=== PATIENT | male | born 1970 | race Caucasian/White ===

== ENCOUNTER 2017-08-07 11:25 | Emergency (ER) | payer OTHER ==
[~2017-08-07 11:25] MED LIST: ALUM5LIQ PO; PERC5TAB12 PO
[2017-08-07] MEDS ORDERED: IOHEXOL 350 MG/ML 10 ML VIAL (for RAD DIAG) IVCONTRAST ONE (11:26)
[2017-08-07 12:14] VITALS: BP 150/104; PULSE 107; RESP 22; TEMP 97.5; O2SAT 97
[2017-08-07] MEDS ORDERED: MORPHINE SULFATE 2 MG/ML INJ IM ONE (13:00)
[2017-08-07] MEDS ORDERED: SODIUM CHLOR 0.9% 1000 ML INJ 1,000 ML IV ONE (13:00)
[2017-08-07] MEDS ORDERED: SODIUM CHLORIDE 0.9% FLUSH 10 ML FLUSH IV FLUSH PRN (13:00)
[2017-08-07] MEDS ORDERED: ONDANSETRON HCL 4 MG/2 ML VIAL IVP ONE (13:00)
[2017-08-07] MEDS ORDERED: METHOCARBAMOL 1000 MG/10 ML VIAL IM ONE (13:00)
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
[2017-08-07 13:15] LABS: AUTOMATED NEUTROPHIL # 6.1 TH/MM3 (1.8-7.7); BASOPHIL # 0.1 TH/MM3 (0-0.2); BASOPHIL % 1.1 % (0.0-2.0); EOSINOPHIL # 0.3 TH/MM3 (0-0.4); EOSINOPHIL % 2.6 % (0.0-4.0); HEMATOCRIT 47.2 % (39.0-51.0); HEMOGLOBIN 16.3 GM/DL (13.0-17.0); LYMPH % 21.5 % (9.0-44.0); LYMPHOCYTE # 2.1 TH/MM3 (1.0-4.8); MEAN CELL VOLUME 91.5 FL (80.0-100.0); MEAN CORPUSCULAR HEMOGLOBIN 31.5 PG (27.0-34.0); MEAN CORPUSCULAR HGB CONC 34.5 % (32.0-36.0); MEAN PLATELET VOLUME 9.2 FL (7.0-11.0); MONO % 12.3 % (0.0-8.0); MONOCYTE # 1.2 TH/MM3 (0-0.9); NEUT % 62.5 % (16.0-70.0); PLATELET COUNT 299 TH/MM3 (150-450); RED BLOOD COUNT 5.16 MIL/MM3 (4.50-5.90); RED CELL DISTRIBUTION WIDTH 13.8 % (11.6-17.2); WHITE BLOOD COUNT 9.8 TH/MM3 (4.0-11.0)
[2017-08-07] MEDS ORDERED: ORPHENADRINE INJ 60 MG/2 ML AMP IM ONE (13:15)
[2017-08-07] MEDS ORDERED: TETANUS/DIPHTHERIA TOXOID ADULT 0.5 ML VIAL IM ONE (13:15)
[2017-08-07] MEDS ORDERED: MORPHINE SULFATE 2 MG/ML INJ IV PUSH ONE (13:15)
[2017-08-07 13:29] LABS: BICARBONATE 23.6 MEQ/L (21.0-32.0); CALCIUM 8.9 MG/DL (8.5-10.1); CREATININE 1.15 MG/DL (0.60-1.30)
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
[2017-08-07] MEDS ORDERED: KETOROLAC TROMETHAMINE 30 MG/ML (IVP) VIAL IV PUSH ONE (14:45)
[2017-08-07] MEDS ORDERED: ROBA500T PO (14:45)
[2017-08-07] MEDS ORDERED: NORC5TAB PO (14:45)
[2017-08-07] MEDS ORDERED: IBUP1TAB7 PO (14:45)
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
[2017-08-07 15:29] VITALS: BP 130/73; PULSE 89; RESP 16; O2SAT 95
== END 2017-08-07 15:44 | disposition home or self-care (01) ==
LOC: NED 11:25 → NEPE 15:44
DX: S52.501A Unspecified fracture of the lower end of right radius, initial encounter for closed fracture (principal); M79.1 Myalgia; F17.210 Nicotine dependence, cigarettes, uncomplicated; R07.81 Pleurodynia; R51 Headache; V23.4XXA Motorcycle driver injured in collision with car, pick-up truck or van in traffic accident, initial encounter; Z23 Encounter for immunization
CPT/HCPCS: 29125; 70450; 71260; 73110; 73130; 80048; 85025; 90471; 90714; 96361; 96372; 96374; 96375; 99285; J1885; J2270; J2360; J2405; J7030; Q9967